=== PATIENT | female | born 1965 | race Caucasian/White ===

== ENCOUNTER → 2017-01-20 | Outpatient (CLI) | payer OTHER ==
--- NOTE | 2017-01-20 13:39 | REPMRS ---
Patient History The patient states she has not had a clinical breast exam in over a year. Patient is postmenopausal. No known family history of cancer. Digital Woman Screen Mammo: January 20, 2017 - Exam #: [id number] Bilateral CC and MLO view(s) were taken. Technologist: Shayna Chilel, Technologist Prior study comparison: May 27, 2015, digital woman screen mammo performed at [facility]. March 29, 2014, digital woman screen mammo performed at [facility]. FINDINGS: There are scattered fibroglandular densities. There has been no change in the appearance of the mammogram from the prior studies. There is a mild amount of residual fibroglandular tissue which is fairly symmetric. There is no interval development of dominant mass, architectural distortion, or clustered microcalcification suggestive of malignancy.Scattered lymph nodes are seen in the axilla. No significant changes when compared with prior studies. ASSESSMENT: BI-RADS/ACR category 1 mammogram. Negative. Recommendation Routine screening mammogram in 1 year (for women over age 40). This mammogram was interpreted with the aid of an FDA-approved computer-aided dectection system. A. Negative x-ray reports should not delay biopsy if a dominant or clinically suspicious mass is present. B. Four to eight percent of cancers are not identified by mammography. C. Adenosis and dense breast may obscure an underlying neoplasm. Electronically Signed By: Maynor Barlow MD 01/20/17 [id number]
--- NOTE | 2017-01-22 14:58 | DEXA ---
AP SPINE L1 - L4 1.139 -0.4 0.1 LT FEMUR TOTAL 1.026 0.1 0.7 RT FEMUR TOTAL 1.015 0.1 0.6 TOTAL BODY TOTAL OTHER DUAL FEMUR FRAX* ASSESSMENT Risk factors: Not performed. 10 year probability of fracture Major osteoporotic fracture % Hip fracture % COMMENTS: Normal bone densitometry of the spine. Normal bone densitometry of the left hip. Normal bone densitometry of the right hip. FOLLOW-UP: Recommendation for the next bone density exam: 5 years. MTDD
== END ==
LOC: M WHC 10:49
PROVIDERS: ATTEND Nurse Practitioner Adult Health
DX: Z12.31 Encounter for screening mammogram for malignant neoplasm of breast (principal); Z13.820 Encounter for screening for osteoporosis
CPT/HCPCS: 77080; G0202

== ENCOUNTER → 2018-04-27 | Outpatient (CLI) | payer OTHER | LOC: M WHC 09:02 | DX: Z12.31 Encounter for screening mammogram for malignant neoplasm of breast (principal) | CPT/HCPCS: 77067 ==

== ENCOUNTER 2018-12-09 02:46 | Emergency (ER) | payer OTHER ==
[~2018-12-09] VITALS: Ht 167.6 cm; Wt 83.2 kg
[2018-12-09] MEDS ORDERED: LISI10TA4 PO (02:57)
[2018-12-09] MEDS ORDERED: LEVO100T5 PO (02:57)
[2018-12-09] MEDS ORDERED: NALT50TA4 PO (02:57)
[2018-12-09] MEDS ORDERED: HYDR12.55 PO (02:57)
[2018-12-09] MEDS ORDERED: ATOR1TAB19 PO (02:57)
[2018-12-09] MEDS ORDERED: BUPR15TASR PO (02:57)
[2018-12-09] MEDS ORDERED: ECOT81TA5 PO (02:57)
[2018-12-09] MEDS ORDERED: ONDANSETRON 4 MG ORAL DISINTEGRATING TAB (Q0162 PER 1MG) As Ordered ONE (03:56)
[2018-12-09] MEDS ORDERED: ONDANSETRON 4 MG ORAL DISINTEGRATING TAB (Q0162 PER 1MG) PO ONE (04:00)
[2018-12-09] MEDS ORDERED: CORTISPORIN OTIC SOLN 10 ML BTL AD ONE (04:00)
[2018-12-09] MEDS ORDERED: NORCO, ANEXSIA 5/325MG TABLET (HYDROcodone/ACETAMINOPHEN) PO ONE (04:00)
[2018-12-09] MEDS ORDERED: AUGMENTIN 875 MG TAB PO ONE (04:00)
[2018-12-09] MEDS ORDERED: AUGM500T34 PO (04:05)
[2018-12-09] MEDS ORDERED: IBUPROFEN 800 MG TAB PO ONE (04:15)
[2018-12-09] MEDS ORDERED: NORCO 5/325MG TABLET (BULK FOR ED) PO ONE (04:15)
[2018-12-09 04:27] VITALS: BP 111/63
== END 2018-12-09 04:29 | disposition home or self-care (01) ==
LOC: M ED 02:46
DX: H60.91 Unspecified otitis externa, right ear (principal); R59.0 Localized enlarged lymph nodes; I10 Essential (primary) hypertension; E78.5 Hyperlipidemia, unspecified; Z79.899 Other long term (current) drug therapy; Z79.82 Long term (current) use of aspirin
CPT/HCPCS: 99284; Q0162

== ENCOUNTER → 2019-08-08 | Outpatient (CLI) | payer OTHER ==
[~2019-08-08] MED LIST: ATOR1TAB19 PO; AUGM500T34 PO; BUPR15TASR PO; ECOT81TA5 PO; HYDR12.55 PO; LEVO100T5 PO; LISI10TA4 PO; NALT50TA4 PO
--- NOTE | 2019-08-08 10:20 | REPMRS ---
Patient History The patient states she had a clinical breast exam in June 2019. Patient is postmenopausal. No known family history of cancer. Taking unspecified hormones for 3 years 6 months. Digital Woman Screen Mammo: August 08, 2019 - Exam #: [id number] Bilateral CC and MLO view(s) were taken. Technologist: Christy Vu, Technologist Prior study comparison: April 27, 2018, bilateral digital woman screen mammo performed at [facility]. January 20, 2017, digital woman screen mammo performed at [facility]. May 27, 2015, digital woman screen mammo performed at [facility]. FINDINGS: There are scattered fibroglandular densities. There has been no change in the appearance of the mammogram from the prior studies. There is a mild amount of scattered fibroglandular density which is fairly symmetric. There is no interval development of dominant mass, architectural distortion, or grouped microcalcification suggestive of malignancy. 3-D tomosynthesis shows no additional findings. Assessment: BI-RADS/ACR category 1 mammogram. Negative Mammogram. Recommendation Routine screening mammogram of both breasts in 1 year (for women over age 40). This patient's Lifetime Breast Cancer Risk is estimated at 7.9 %. This mammogram was interpreted with the aid of an FDA-approved computer-aided dectection system. Electronically Signed By: Jonathon Myers MD 08/08/19 [id number]
--- NOTE | 2019-08-10 15:23 | DEXA ---
AP SPINE L1 - L4 1.090 -0.8 -0.1 LT FEMUR TOTAL 1.013 0.0 0.7 LT NECK 0.897 -1.0 0.0 RT FEMUR TOTAL 1.035 0.2 0.8 RT NECK 0.917 -0.9 0.1 TOTAL BODY TOTAL OTHER COMMENTS: Normal bone densitometry of the spine. Normal bone densitometry of the right hip. There is low bone density of the left hip. The density of the spine is decreased 4.3% since 01/20/2017. The density of the left hip has decreased 1.3% since 01/20/2017. The density of the right hip has increased 2.0% since 01/20/2017. FOLLOW-UP: Recommendation for the next bone density exam: 2 years. MANDIE
== END ==
LOC: M WHC 08:37
PROVIDERS: ATTEND Nurse Practitioner Adult Health
DX: Z12.31 Encounter for screening mammogram for malignant neoplasm of breast (principal); Z13.820 Encounter for screening for osteoporosis

== ENCOUNTER → 2020-08-29 | Outpatient (CLI) | payer OTHER ==
[~2020-08-29] MED LIST changes: +LISI10TA22 PO; -LISI10TA4 PO
--- NOTE | 2020-08-29 08:58 | REPMRS ---
Patient History The patient states she has not had a clinical breast exam in over a year. Patient is postmenopausal. No known family history of cancer. No Hormone Replacement Therapy Digital Woman Screen Mammo: August 29, 2020 - Exam #: [id number] Bilateral CC and MLO view(s) were taken. Technologist: Shayna Chilel, Technologist Prior study comparison: August 08, 2019, bilateral digital woman screen mammo performed at [facility]. April 27, 2018, bilateral digital woman screen mammo performed at [facility]. January 20, 2017, digital woman screen mammo performed at [facility]. FINDINGS: There are scattered fibroglandular densities. The [employer] volumetric breast density category is:B. There has been no change in the appearance of the mammogram from the prior studies. There is a mild amount of scattered fibroglandular density which is fairly symmetric. There is no interval development of dominant mass, architectural distortion, or grouped microcalcification suggestive of malignancy. 3-D tomosynthesis shows no additional findings. Assessment: BI-RADS/ACR category 1 mammogram. Negative Mammogram. Recommendation Routine screening mammogram of both breasts in 1 year (for women over age 40). This patient's [facility] Lifetime Breast Cancer Risk is estimated at 7.7 %. This mammogram was interpreted with the aid of an FDA-approved computer-aided dectection system. Electronically Signed By: Jonathon Myers MD 08/29/20 [id number]
== END ==
LOC: M WHC 08:15
PROVIDERS: ATTEND Nurse Practitioner Adult Health
DX: Z12.31 Encounter for screening mammogram for malignant neoplasm of breast (principal)

== ENCOUNTER → 2021-10-08 | Outpatient (CLI) | payer OTHER | LOC: M WHC 10:01 | PROVIDERS: ATTEND Nurse Practitioner Family | DX: Z12.31 Encounter for screening mammogram for malignant neoplasm of breast (principal); M85.851 Other specified disorders of bone density and structure, right thigh; M85.852 Other specified disorders of bone density and structure, left thigh ==

== ENCOUNTER → 2023-02-16 | Outpatient (CLI) | payer MEDICAID, OTHER | LOC: M WHC 08:03 | PROVIDERS: ATTEND Registered Nurse | DX: Z12.31 Encounter for screening mammogram for malignant neoplasm of breast (principal) ==

== ENCOUNTER → 2024-02-22 | Outpatient (CLI) | payer OTHER | LOC: M WHC 13:02 | PROVIDERS: ATTEND Registered Nurse | DX: Z12.31 Encounter for screening mammogram for malignant neoplasm of breast (principal); Z13.820 Encounter for screening for osteoporosis ==

== ENCOUNTER → 2025-03-06 | Outpatient (CLI) | payer OTHER | LOC: M WHC 13:20 | PROVIDERS: ATTEND Registered Nurse | DX: Z12.31 Encounter for screening mammogram for malignant neoplasm of breast (principal); R92.313 Mammographic fatty tissue density, bilateral breasts ==